=== PATIENT | male | born 1940 | race Caucasian/White ===

== ENCOUNTER 2021-12-02 12:51 | Inpatient (IN) | payer MEDICARE ==
[~2021-12-02] VITALS: Ht 182.9 cm; Wt 124.5 kg
[~2021-12-02 12:51] MED LIST: AMIODARONE HCL200 MG PO; ASPIRIN CHEWABL81 MG PO; BUMETANIDE1 MG PO; BUMEX1 MG PO; CIMETIDINE300 MG PO; KLOR-CON M1010 MEQ PO; MEDROL 4MG DOSEP4 MG PO; NEURONTIN300 MG PO; NORVASC5 MG PO; OMEPRAZOLE20 M1 PO; PROMETHAZINE-D118 ML PO; TOPROL XL 25MG25 MG PO; TORSEMIDE100 MG PO; XANAX0.5 MG PO; ZOCOR10 MG PO; ZOCOR20 MG PO
[2021-12-02 13:23] LABS: BASOPHIL 0.4 % (0-2); HCT 37.7 % (42.0-52.0); HGB 12.5 g/dl (13.2-18.0); LYMPHOCYTE 18.1 % (15-48); MCHC 33.2 g/dL (32.0-36.0); MCV 99.5 fL (78.0-100.0); MONOCYTE 11.9 % (0-12); MPV 10.6 fL (6.0-9.5); NEUTROPHIL 66.4 % (41-80); NRBC 0; PLT 106 K/uL (150-400); RBC 3.79 M/uL (4.70-6.00); RDW 12.8 % (11.5-14.0); WBC 5.3 K/uL (4.0-10.5)
[2021-12-02 13:31] LABS: INR 1.22 (0.9-1.2); PTT 34.4 SECONDS (24.9-34.6)
[2021-12-02 13:52] LABS: ALBUMIN 3.8 g/dL (3.4-5.0); BILIRUBIN - TOTAL 1.5 mg/dL (0.2-1.0); BUN/CREAT RATIO (CALC) 18.2 RATIO; CREATININE 2.36 mg/dL (0.67-1.17); GLOBULIN (CALCULATION) 2.8 g/dL; POTASSIUM 4.4 mmol/L (3.5-5.1); TOTAL PROTEIN 6.6 g/dL (6.4-8.2)
[2021-12-02 14:24] LABS: BILIRUBIN NEGATIVE (NEGATIVE); BLOOD NEGATIVE Ery/uL (NEGATIVE); CLARITY CLEAR (CLEAR); COLOR YELLOW (YELLOW); GLUCOSE (U) NORMAL (NORMAL); LEUKOCYTES 1+ Leu/uL (NEGATIVE); NITRITE NEGATIVE (NEGATIVE); PROTEIN NEGATIVE (NEGATIVE); UROBILINOGEN 0.2 mg/dL (0.2-1.0); pH 6.5 (5.0-9.0)
[2021-12-02 14:43] LABS: SQUAMOUS EPITHELIAL CELLS RARE
[2021-12-03 06:48] LABS: BASOPHIL 0.4 % (0-2); EOSINOPHIL 1.6 % (0-7); HCT 35.3 % (42.0-52.0); HGB 11.6 g/dl (13.2-18.0); LYMPHOCYTE 12.8 % (15-48); MCH 32.4 pg (25.0-31.0); MCHC 32.9 g/dL (32.0-36.0); MCV 98.6 fL (78.0-100.0); MONOCYTE 12.9 % (0-12); MPV 10.4 fL (6.0-9.5); NEUTROPHIL 72.1 % (41-80); NRBC 0; RBC 3.58 M/uL (4.70-6.00); RDW 12.8 % (11.5-14.0); WBC 5.5 K/uL (4.0-10.5)
[2021-12-03 07:04] LABS: PLT 96 K/uL (150-400)
[2021-12-03 07:19] LABS: ALBUMIN 3.6 g/dL (3.4-5.0); BILIRUBIN - TOTAL 1.6 mg/dL (0.2-1.0); BUN/CREAT RATIO (CALC) 19.3 RATIO; CREATININE 2.28 mg/dL (0.67-1.17); GLOBULIN (CALCULATION) 2.4 g/dL; MAGNESIUM 2.5 mg/dL (1.8-2.4); POTASSIUM 4.5 mmol/L (3.5-5.1)
[2021-12-03] MEDS ORDERED: ISOSORBIDE MONO60 MG PO (10:23)
[2021-12-03] MEDS ORDERED: HYDROCODON-ACE1 EAC2 PO (10:24)
[2021-12-03] MEDS ORDERED: ASPIRIN81 MG PO (10:27)
[2021-12-03] MEDS ORDERED: TORSEMIDE100 MG PO (10:28)
[2021-12-03] MEDS ORDERED: PEPCID AC20 MG PO (10:28)
[2021-12-03] MEDS ORDERED: XANAX0.5 MG PO (10:32)
[2021-12-04 03:00] LABS: BASOPHIL 0.4 % (0-2); EOSINOPHIL 2.7 % (0-7); HCT 34.7 % (42.0-52.0); HGB 11.4 g/dl (13.2-18.0); MCH 32.3 pg (25.0-31.0); MCHC 32.9 g/dL (32.0-36.0); MCV 98.3 fL (78.0-100.0); MONOCYTE 14.4 % (0-12); MPV 10.4 fL (6.0-9.5); NEUTROPHIL 58.1 % (41-80); NRBC 0; RBC 3.53 M/uL (4.70-6.00); WBC 4.8 K/uL (4.0-10.5)
[2021-12-04 03:05] LABS: PLT 94 K/uL (150-400)
--- NOTE | 2021-12-04 03:08 | NUR ---
0230 - PT C/O CHEST PAIN 7 OUT OF 10. GAVE SL NITRO, PT REPORTED THAT IT RELIEVED PAIN TO A 2 OUT OF 10. STAT EKG & LABS WERE ORDERED.
[2021-12-04 03:25] LABS: ALBUMIN 3.6 g/dL (3.4-5.0); BILIRUBIN - TOTAL 1.4 mg/dL (0.2-1.0); BUN/CREAT RATIO (CALC) 19.3 RATIO; CREATININE 2.8 mg/dL (0.67-1.17); GLOBULIN (CALCULATION) 2.5 g/dL; MAGNESIUM 2.9 mg/dL (1.8-2.4); POTASSIUM 4.6 mmol/L (3.5-5.1); TOTAL PROTEIN 6.1 g/dL (6.4-8.2)
[2021-12-04 03:32] LABS: MAGNESIUM 2.9 mg/dL (1.8-2.4); PHOSPHORUS 5.1 mg/dL (2.6-4.7)
--- NOTE | 2021-12-04 16:11 | NUR ---
12/04/21 Mr. Pop lives at home with his spouse. The couple had 3 children; one has . Another daughter lives in [place] and the other daughter is described as "unavailable". They have a built-in shower seat. Both Ifeoma/Ifeoma Pop drive and report to be able to manage their own affairs. Hsusein Pop reports to be having a decline in memory; Ms. Pop in particular. Their PCP is Raffaele Diggs. - Assisted Living was discussed and brochures provided. Mr. Epps stated that he will review the information once they are home. He requested [facility]. A referral was made to include social work.
[2021-12-05 06:13] LABS: BASOPHIL 0.5 % (0-2); EOSINOPHIL 3.4 % (0-7); HCT 35.9 % (42.0-52.0); HGB 11.7 g/dl (13.2-18.0); LYMPHOCYTE 16.7 % (15-48); MCH 32.6 pg (25.0-31.0); MCHC 32.6 g/dL (32.0-36.0); MONOCYTE 14.5 % (0-12); MPV 10.9 fL (6.0-9.5); NEUTROPHIL 64.5 % (41-80); NRBC 0; PLT 103 K/uL (150-400); RBC 3.59 M/uL (4.70-6.00); RDW 12.9 % (11.5-14.0); WBC 5.6 K/uL (4.0-10.5)
[2021-12-05 06:58] LABS: IRON % SATURATION 19.5 %SAT (20-50)
[2021-12-05 07:30] LABS: BUN/CREAT RATIO (CALC) 20.9 RATIO; CREATININE 2.82 mg/dL (0.67-1.17); POTASSIUM 4.7 mmol/L (3.5-5.1)
[2021-12-05] MEDS ORDERED: BUMEX1 MG PO (11:32)
--- NOTE | 2021-12-06 12:00 | NUR ---
12/06 [facility] was notified of 816 discharge.
== END 2021-12-05 12:36 | disposition home health service (06) | DRG 291 ==
LOC: FER 12:51 → FTCU 16:34
PROVIDERS: Emergency Medicine; Nurse Practitioner; ADMIT Internal Medicine
PROC: B24BZZZ Ultrasonography of Heart with Aorta (ICD-10-PCS; principal; 2021-12-03)
DX: I13.0 Hypertensive heart and chronic kidney disease with heart failure and stage 1 through stage 4 chronic kidney disease, or unspecified chronic kidney disease (principal); I50.33 Acute on chronic diastolic (congestive) heart failure; N17.9 Acute kidney failure, unspecified; Z20.822 Contact with and (suspected) exposure to COVID-19; N18.30 Chronic kidney disease, stage 3 unspecified; F41.9 Anxiety disorder, unspecified; I48.0 Paroxysmal atrial fibrillation; M54.50 Low back pain, unspecified; G89.29 Other chronic pain; E78.5 Hyperlipidemia, unspecified; I44.0 Atrioventricular block, first degree; I27.20 Pulmonary hypertension, unspecified; I08.1 Rheumatic disorders of both mitral and tricuspid valves; I49.3 Ventricular premature depolarization; I25.10 Atherosclerotic heart disease of native coronary artery without angina pectoris; I49.8 Other specified cardiac arrhythmias; Z95.2 Presence of prosthetic heart valve; Z95.1 Presence of aortocoronary bypass graft; Z90.49 Acquired absence of other specified parts of digestive tract; Z82.49 Family history of ischemic heart disease and other diseases of the circulatory system; Z79.899 Other long term (current) drug therapy; Z79.82 Long term (current) use of aspirin; Z28.311 Partially vaccinated for COVID-19
CPT/HCPCS: 36415; 36600; 71045; 80048; 80053; 80061; 81001; 82553; 82607; 82803; 83036; 83540; 83550; 83735; 83880; 84100; 84145; 84484; 85025; 85610; 85730; 87088; 93005; 94010; 94640; 94760; J1644; J1940; J3475; U0002